=== PATIENT | female | born 2000 | race Caucasian/White ===

== ENCOUNTER → 2024-05-02 16:49 | Outpatient (REF) | payer OTHER, SELFPAY ==
[2024-05-02 17:13] LABS: % Basophils 0.3 % (0-2); % Eosinophils 0.4 % (0-6); % Immature Granulocytes 0.2 % (0-0.5); % Lymphocytes 22.6 % (20.5-51.1); % Monocytes 7.1 % (1.7-9.3); % Neutrophils 69.4 % (42.2-75.2); Absolute Lymphocytes 2.4 10^3/uL (1.2-3.4); Absolute Monocytes 0.8 10^3/uL (0.1-0.6); Absolute Neutrophils 7.3 10^3/uL (1.4-6.5); Hemoglobin 10.4 g/dL (12.0-16.0); Mean Corp Hgb Conc. 32.5 g/dL (33.0-37.0); Mean Corpuscular Hgb 21.8 pg (27.0-31.0); Mean Corpuscular Volume 67.2 fL (81.0-99.0); Mean Platelet Volume 9.3 fL (7.4-10.4); Nucleated Red Blood Cells % 0 %; Platelet Count 373 10^3/uL (130-400); Red Blood Cell Count 4.76 10^6/uL (4.20-5.40); Red Cell Dist. Width 15.1 % (11.5-14.5); White Blood Cell Count 10.6 10^3/uL (4.8-10.8)
[2024-05-02 17:28] LABS: ALT (SGPT) 17 U/L (0-35); AST (SGOT) 29 U/L (14-36); Alkaline Phosphatase 43 U/L (38-126); Blood Urea Nitrogen 16 mg/dl (7-17); Carbon Dioxide 24 mmol/L (22-30); Chloride 103 mmol/L (98-107); Glucose 89 mg/dl (70-99); Potassium 4.1 mmol/L (3.5-5.1); Sodium 136 mmol/L (135-145); Total Protein 7.7 g/dl (6.3-8.2); eGFR > 60.00
[2024-05-02 17:32] LABS: C-Reactive Protein < 5.00 mg/L (0.0-10.00)
[2024-05-02 17:37] LABS: Total Iron Binding Capacity 348 ug/dl (265-497)
[2024-05-02 17:47] LABS: Erythrocyte Sed Rate 17 mm/hour (0-20)
[2024-05-02 17:58] LABS: Hepatitis B Surface Antigen Negative (Negative)
[2024-05-02 18:03] LABS: Ferritin 14.9 ng/ml (6.24-137)
[2024-05-02 18:16] LABS: Hepatitis B Core Ab, Total Negative (Negative); Hepatitis B Surface Antibody Positive
[2024-05-02 18:17] LABS: Vitamin B12 729 pg/ml (239-931)
[2024-05-05 03:56] LABS: Vitamin D 1,25 Dihydroxy 44.2 pg/mL (19.9-79.3)
== END ==
LOC: REG 16:49
PROVIDERS: ATTENDING PHYSICIAN Internal Medicine Gastroenterology
DX: K51.90 Ulcerative colitis, unspecified, without complications (principal)
CPT/HCPCS: 36415; 80053; 82607; 82652; 82728; 83550; 85025; 85652; 86140; 86704; 86706; 87340

== ENCOUNTER → 2024-05-04 08:28 | Outpatient (REF) | payer OTHER, SELFPAY | LOC: REG 08:28 | PROVIDERS: ATTENDING PHYSICIAN Internal Medicine Gastroenterology | DX: K51.90 Ulcerative colitis, unspecified, without complications (principal) | CPT/HCPCS: 83993 ==

== ENCOUNTER → 2024-06-19 06:23 | Day surgery (SDC) | payer OTHER, SELFPAY | LOC: GI 06:23 | PROVIDERS: ATTENDING PHYSICIAN Internal Medicine Gastroenterology | DX: K63.89 Other specified diseases of intestine (principal); K64.8 Other hemorrhoids; K50.80 Crohn's disease of both small and large intestine without complications; K52.9 Noninfective gastroenteritis and colitis, unspecified | CPT/HCPCS: 45380; 88305 ==